=== PATIENT | female | born 1945 | race Caucasian/White ===

== ENCOUNTER 2019-10-02 17:25 | Emergency (ER) | payer MEDICARE ==
[2019-10-02 17:58] VITALS: RESP 18; TEMP 97
[2019-10-02 18:29] LABS: Basophils % (A) 1 %; Eosinophils # (A) 0.1 k/uL (0-0.7); Eosinophils % (A) 2 %; HCT 42.1 % (34.0-46.0); HGB 14.2 gm/dL (11.4-16.0); Lymphocytes # (A) 1.6 k/uL (1.0-4.8); Lymphocytes % (A) 30 %; MCHC 33.8 g/dL (31.0-37.0); MCV 100.5 fL (80.0-100.0); Mean Platelet Volume 7.7; Monocytes # (A) 0.3 k/uL (0-1.0); Monocytes % (A) 5 %; Neutrophils # (A) 3.2 k/uL (1.3-7.7); Neutrophils % (A) 59 %; Platelet Count 231 k/uL (150-450); RBC 4.19 m/uL (3.80-5.40); RDW 12.1 % (11.5-15.5); WBC 5.4 k/uL (3.8-10.6)
[2019-10-02 18:38] LABS: ALT 21 U/L (4-34); AST 32 U/L (14-36); African American GFR (CKD) >90 (>60 ml/min/1.73 sqM); Albumin 4.2 g/dL (3.5-5.0); Alkaline Phosphatase 66 U/L (38-126); Anion Gap 14 mmol/L; Blood Urea Nitrogen 10 mg/dL (7-17); Calcium 9.1 mg/dL (8.4-10.2); Carbon Dioxide 23 mmol/L (22-30); Chloride 104 mmol/L (98-107); Glucose 93 mg/dL (74-99); Non-African American GFR(CKD) >90 (>60 ml/min/1.73 sqM); Potassium 2.8 mmol/L (3.5-5.1); Sodium 141 mmol/L (137-145); Total Bilirubin 0.3 mg/dL (0.2-1.3); Total Protein 7.2 g/dL (6.3-8.2)
[2019-10-02 18:40] LABS: Alcohol 202 mg/dL
--- NOTE | 2019-10-02 19:03 | CT ---
EXAMINATION TYPE: CT brain mta delvalle con DATE OF EXAM: 10/02/2019 COMPARISON: None HISTORY: Fall with posterior head injury CT DLP: 1373.9 mGycm Automated exposure control for dose reduction was used. Multiple axial sections were obtained of the brain without contrast. Multiple axial sections were obt ained from the skull base to T1 vertebra without contrast. Ventricles have normal size. There is mild cerebral atrophy. There is no mass effect nor midline shif t. There is no sign of intracranial hemorrhage. The calvarium is intact. Cervical vertebra have normal alignment. There is spurring and disc space narrowing at C5-6 and C6-7. Posterior elements are intact. There is minor hypertrophic facet arthropathy. The skull base is inta ct. I see no focal bone destruction. IMPRESSION: Mild cerebral atrophy. No acute intracranial abnormality. Mild spondylotic changes in the lower cervical spine. No fracture.
[2019-10-02] MEDS ORDERED: ONDANSETRON 4 MG/2 ML VIAL IVP STA (19:24)
[2019-10-02] MEDS ORDERED: LIDOCAINE 1% INJ 10MG/ML (20 ML MDV) SQ ONE (19:46)
[2019-10-02] MEDS ORDERED: POTASSIUM CHLORIDE ER 20 MEQ TAB.ER PO STA (20:05)
--- NOTE | 2019-10-02 20:12 | ED ---
Head Injury HPI - General Chief complaint: Head Injury Stated complaint: head injury Time Seen by Provider: 10/02/19 17:47 Source: patient, EMS Mode of arrival: EMS Limitations: no limitations - History of Present Illness Initial comments: 74-year-old female that presents emergency room via ambulance today from her apartment for evaluation of fall at home. The patient reports that she had 2 whiskey and soda pop drinks. Patient reports that she was in her bathroom and she fell back. She is unsure as to why she fell. She denies any mechanical reasoning for the fall. She states that she was very tired. She denies any chest pain cough or respiratory breathing. No weakness. Denies any back pain hip pain or worsening pain. No upper stomach pain. She does relate that her head is bleeding. She denies any headache. No vision changes or speech changes. No history of anticoagulants. Denies any neck pain. Nothing seems to make her symptoms better or worse. No other complaints. - Related Data Previous Rx's Medication Instructions Recorded Potassium Chloride ER [K-Dur 20] 20 meq PO DAILY #7 tab 10/02/19 Allergies/Adverse reactions: Allergies Allergy/AdvReac Type Severity Reaction Status Date / Time adhesive Allergy Rash/Hives Verified 10/02/19 17:58 Review of Systems ROS Statement: Those systems with pertinent positive or pertinent negative responses have been documented in the HPI. ROS Other: All systems not noted in ROS Statement are negative. Past Medical History Past Medical History: Coronary Artery Disease (CAD), Hyperlipidemia, Hypertension Additional Past Medical History / Comment(s): glaucoma History of Any Multi-Drug Resistant Organisms: None Reported Past Surgical History: No Surgical Hx Reported Past Psychological History: No Psychological Hx Reported Smoking Status: Never smoker Past Alcohol Use History: Occasional Past Drug Use History: None Reported General Exam Limitations: no limitations General appearance: alert, in no apparent distress, appears intoxicated Head exam: Present: other (Patient's head is wrapped in bandages, upon removing the bandage as there is a curvilinear laceration full-thickness to the occipital region. This measures proximally 2.5 inches in length. There is moderate amount of bleeding which is easily controlled. There is a moderate amount of hematoma surrounding laceration that measures approximately 5 cm in diameter) Eye exam: Present: normal appearance ENT exam: Present: normal exam, normal oropharynx, mucous membranes moist, TM's normal bilaterally Neck exam: Present: normal inspection, full ROM. Absent: tenderness Respiratory exam: Present: normal lung sounds bilaterally. Absent: respiratory distress, wheezes, rales, rhonchi Cardiovascular Exam: Present: regular rate, normal rhythm, normal heart sounds GI/Abdominal exam: Present: soft, distended, normal bowel sounds Extremities exam: Present: normal inspection, full ROM, normal capillary refill Back exam: Present: normal inspection, full ROM Neurological exam: Present: alert, oriented X3, CN II-XII intact, normal gait Psychiatric exam: Present: normal affect, normal mood Skin exam: Present: warm, dry, intact, normal color Course Vital Signs 10/02/19 10/02/19 10/02/19 17:49 21:27 23:23 Temperature 97 F L Pulse Rate 72 60 78 Respiratory 18 18 18 Rate Blood Pressure 134/94 119/87 105/73 O2 Sat by Pulse 96 98 95 Oximetry Procedures - Laceration Laceration #1 Consent Obtained: verbal consent Indication: laceration (Laceration was surrounded by hematoma, hematoma reduced prior to suturing.) Site: scalp Size (cm): 8 Description: flap Depth: simple, single layer Anesthetic Used: lidocaine 1% Anesthesia Technique: local infiltration Pre-repair: wound explored, irrigated extensively, deep structures intact Type of Sutures: other (11 shashank) Patient Tolerated Procedure: well Medical Decision Making - Medical Decision Making 74-year-old female presents emergency room today after a fall. She sustained head injury. She has an obvious trauma with laceration and hematoma to occipital region of the scalp. Patient underwent CT imaging secondary to patient age as well as the laceration. Patient also had CT imaging of the cervical spine secondary to age and mechanism of fall. CT imaging of the brain and cervical spine is negative for any acute pathology. Patient does have cerebral atrophy. Patient is intoxicated, alcohol level is 202. Patient has no other injuries. She has full range of motion of her extremities. She has no tenderness or back or hips. Patient had EKG completed which revealed sinus bradycardia without any ST elevation or depression noted. Patient's potassium was found to be low at 2.8, this was replaced with 40 mEq by mouth. Patient was also given 20 milliequivalents of potassium IV. Her magnesium was normal. I did advise the patient that she is to follow-up with family doctor. I do believe that patient had a fall secondary to her alcohol intoxication. Patient verbalized understanding and she is to take 20 mEq of potassium daily over the next 1 week. She has been taking only 10 mEq at home, however is questionable as to whether she is taking this or not. I advised her the importance of taking the potassium and replacing it. I advised return precautions. Patient's sister is at bedside and she is agreeable to stay with the patient overnight. We did discuss head injuries. I advised her to retrain from any strenuous activity over the next couple weeks. I advised that the shashank need to be removed in 10 days. I discussed return precautions. They verbalized understanding and agreement. I did discuss the case with Dr. Vanessa. He did see patient - Lab Data Result diagrams: 10/02/19 18:16 10/02/19 18:16 Lab Results 10/02/19 10/02/19 10/02/19 Range/Units 18:16 18:16 18:16 WBC 5.4 (3.8-10.6) k/uL RBC 4.19 (3.80-5.40) m/uL Hgb 14.2 (11.4-16.0) gm/dL Hct 42.1 (34.0-46.0) % MCV 100.5 H (80.0-100.0) fL MCH 34.0 (25.0-35.0) pg MCHC 33.8 (31.0-37.0) g/dL RDW 12.1 (11.5-15.5) % Plt Count 231 (150-450) k/uL Neutrophils % 59 % Lymphocytes % 30 % Monocytes % 5 % Eosinophils % 2 % Basophils % 1 % Neutrophils # 3.2 (1.3-7.7) k/uL Lymphocytes # 1.6 (1.0-4.8) k/uL Monocytes # 0.3 (0-1.0) k/uL Eosinophils # 0.1 (0-0.7) k/uL Basophils # 0.0 (0-0.2) k/uL Sodium 141 (137-145) mmol/L Potassium 2.8 L (3.5-5.1) mmol/L Chloride 104 (98-107) mmol/L Carbon Dioxide 23 (22-30) mmol/L Anion Gap 14 mmol/L BUN 10 (7-17) mg/dL Creatinine 0.46 L (0.52-1.04) mg/dL Est GFR (CKD-EPI)AfAm >90 (>60 ml/min/1.73 sqM) Est GFR (CKD-EPI)NonAf >90 (>60 ml/min/1.73 sqM) Glucose 93 (74-99) mg/dL Calcium 9.1 (8.4-10.2) mg/dL Magnesium (1.6-2.3) mg/dL Total Bilirubin 0.3 (0.2-1.3) mg/dL AST 32 (14-36) U/L ALT 21 (4-34) U/L Alkaline Phosphatase 66 (38-126) U/L Troponin I <0.012 (0.000-0.034) ng/mL Total Protein 7.2 (6.3-8.2) g/dL Albumin 4.2 (3.5-5.0) g/dL Urine Color Urine Appearance (Clear) Urine pH (5.0-8.0) Ur Specific [place] (1.001-1.035) Urine Protein (Negative) Urine Glucose (UA) (Negative) Urine Ketones (Negative) Urine Blood (Negative) Urine Nitrite (Negative) Urine Bilirubin (Negative) Urine Urobilinogen (<2.0) mg/dL Ur Leukocyte Esterase (Negative) Serum Alcohol 202 H* mg/dL 10/02/19 10/02/19 Range/Units 18:16 21:20 WBC (3.8-10.6) k/uL RBC (3.80-5.40) m/uL Hgb (11.4-16.0) gm/dL Hct (34.0-46.0) % MCV (80.0-100.0) fL MCH (25.0-35.0) pg MCHC (31.0-37.0) g/dL RDW (11.5-15.5) % Plt Count (150-450) k/uL Neutrophils % % Lymphocytes % % Monocytes % % Eosinophils % % Basophils % % Neutrophils # (1.3-7.7) k/uL Lymphocytes # (1.0-4.8) k/uL Monocytes # (0-1.0) k/uL Eosinophils # (0-0.7) k/uL Basophils # (0-0.2) k/uL Sodium (137-145) mmol/L Potassium (3.5-5.1) mmol/L Chloride (98-107) mmol/L Carbon Dioxide (22-30) mmol/L Anion Gap mmol/L BUN (7-17) mg/dL Creatinine (0.52-1.04) mg/dL Est GFR (CKD-EPI)AfAm (>60 ml/min/1.73 sqM) Est GFR (CKD-EPI)NonAf (>60 ml/min/1.73 sqM) Glucose (74-99) mg/dL Calcium (8.4-10.2) mg/dL Magnesium 2.0 (1.6-2.3) mg/dL Total Bilirubin (0.2-1.3) mg/dL AST (14-36) U/L ALT (4-34) U/L Alkaline Phosphatase (38-126) U/L Troponin I (0.000-0.034) ng/mL Total Protein (6.3-8.2) g/dL Albumin (3.5-5.0) g/dL Urine Color Light Yellow Urine Appearance Clear (Clear) Urine pH 5.0 (5.0-8.0) Ur Specific [place] 1.009 (1.001-1.035) Urine Protein Negative (Negative) Urine Glucose (UA) Negative (Negative) Urine Ketones 1+ H (Negative) Urine Blood Negative (Negative) Urine Nitrite Negative (Negative) Urine Bilirubin Negative (Negative) Urine Urobilinogen <2.0 (<2.0) mg/dL Ur Leukocyte Esterase Negative (Negative) Serum Alcohol mg/dL - EKG Data EKG Comments: EKG was completed at 1827. Reveals sinus bradycardia with a rate of 54. [place] 162 QRS 98 QT/QTc 440/[address] elevation or depression noted. - Radiology Data Radiology results: report reviewed Disposition Clinical Impression: Alcohol intoxication, Fall, Head injury, Occipital scalp laceration, Hypokalemia Disposition: HOME SELF-CARE Instructions (If sedation given, give patient instructions): Hypokalemia (ED), Fall Prevention for Older Adults (ED), Head Injury (ED), Staple Care (ED) Additional Instructions: Ice to your head. Refrain from strenuous activities. Tylenol every 4-6 hours as needed for pain. Have the shashank removed in 10 days. Please increase your potassium tablets to 20 mg 1 time daily. Follow-up with her family doctor in regards to your low potassium. Return to the emergency room for any worsening or changing symptoms, including but not limited to increasing headache, vision changes, speech changes, weakness, vomiting, chest pain, or other concerns. Prescriptions: Potassium Chloride ER [K-Dur 20] 20 meq PO DAILY #7 tab Is patient prescribed a controlled substance at d/c from ED?: No When asked, does pt state using other controlled substances?: No Referrals: None,Stated [Primary Care Provider] - 1-2 days
[2019-10-02] MEDS ORDERED: POTASSIUM CHLORIDE 20 MEQ in WATER FOR INJECTION 1 100ML.BAG IVPB STA (20:58)
[2019-10-02 21:37] LABS: Appearance,Urine Clear (Clear); Bilirubin,Urine Negative (Negative); Blood,Urine Negative (Negative); Color,Urine Light Yellow; Glucose,Urine (UA) Negative (Negative); Ketones,Urine 1+ (Negative); Leukocyte Esterase,Urine Negative (Negative); Nitrite,Urine Negative (Negative); Protein,Urine Negative (Negative); Specific Gravity,Urine 1.009 (1.001-1.035); Urobilinogen,Urine <2.0 mg/dL (<2.0)
[2019-10-02 23:30] VITALS: BP 105/73; PULSE 78
== END 2019-10-02 23:30 | disposition home or self-care (01) ==
LOC: EC 17:25
DX: S01.01XA Laceration without foreign body of scalp, initial encounter (principal); E87.6 Hypokalemia; F10.129 Alcohol abuse with intoxication, unspecified; G31.9 Degenerative disease of nervous system, unspecified; R00.1 Bradycardia, unspecified; Z91.048 Other nonmedicinal substance allergy status; Y90.7 Blood alcohol level of 200-239 mg/100 ml; W19.XXXA Unspecified fall, initial encounter; Y92.002 Bathroom of unspecified non-institutional (private) residence as the place of occurrence of the external cause
CPT/HCPCS: 36415; 93005; 80053; 83735; 84484; 85025; 81003; 72125; 70450; 99284; 12004; 96365; 96366; 96375; G0480; J3480; J2405; J2001; 80320

== ENCOUNTER → 2020-02-01 | Outpatient (CLI) | payer MEDICARE | END | disposition home or self-care (01) | LOC: LABWHC1 12:38 | PROVIDERS: ATTEND Surgery | DX: Z11.59 Encounter for screening for other viral diseases (principal) ==

== ENCOUNTER → 2020-02-05 | Day surgery (SDC) | payer MEDICARE ==
[2020-02-01 10:25] VITALS: BMI 26.9
[~2020-02-05] MED LIST: LACTATED RINGERS 1,000 ML IV SCH; LIDOCAINE 1% (10MG/ML) FOR IV START INTRADERMA PRN; LIDOCAINE 1% INJ 10MG/ML (20 ML MDV) ONE; PROPOFOL 10 MG/ML 20 ML VIAL IV ONE
[2020-02-05 08:46] VITALS: RESP 16; TEMP 97.1
--- NOTE | 2020-02-05 09:13 | P.GSHP ---
History of Present Illness H&P Date: 02/05/20 Chief Complaint: Anemia, GERD, screening, history of polyps Patient here today for upper and lower endoscopy. Last colonoscopy 5 years ago. History of colon polyps. No family history of colon cancer. Recently found to be anemic. Has had some dark stools while on oral iron. Denies rectal bleeding. Chronic reflux. No dysphagia. No pain. Past Medical History Past Medical History: Coronary Artery Disease (CAD), Cancer, Eye Disorder, Hypertension, Pneumonia Additional Past Medical History / Comment(s): glaucoma, hiatal hernia, skin cancer, low red blood cells and low white blood cells History of Any Multi-Drug Resistant Organisms: None Reported Past Surgical History: Breast Surgery Additional Past Surgical History / Comment(s): breast biopsy, vein removed from left leg, Past Anesthesia/Blood Transfusion Reactions: No Reported Reaction Smoking Status: Never smoker - Past Family History Mother Family Medical History: No Reported History Medications and Allergies Home Medications Medication Instructions Recorded Confirmed Type Atorvastatin [Lipitor] 10 mg PO DAILY 02/01/20 02/05/20 History Biotin 10,000 mcg PO DAILY 02/01/20 02/05/20 History Brimonidine Tartrate [Alphagan P 1 drops BOTH EYES BID 02/01/20 02/05/20 History 0.1% Ophth Soln] Cholecalciferol (Vitamin D3) 2,000 unit PO DAILY 02/01/20 02/05/20 History [Vitamin D3] Cyanocobalamin (Vitamin B-12) 1,000 mcg PO DAILY 02/01/20 02/05/20 History [Vitamin B-12] Dorzolamide-Timol 2.23%/0.68% 1 drop BOTH EYES BID 02/01/20 02/05/20 History [Cosopt] Hydrochlorothiazide [Hydrodiuril] 25 mg PO DAILY 02/01/20 02/05/20 History Multivitamins, Thera [Multivitamin 1 tab PO DAILY 02/01/20 02/05/20 History (formulary)] Netarsudil Mesylat/Latanoprost 1 drop BOTH EYES HS 02/01/20 02/05/20 History [Rocklatan 0.02%-0.005% Eye Drp] Omeprazole [PriLOSEC] 40 mg PO DAILY 02/01/20 02/05/20 History Potassium Chloride [Klor-Con 10] 10 meq PO BID 02/01/20 02/05/20 History Raloxifene [Evista] 60 mg PO DAILY 02/01/20 02/05/20 History amLODIPine [Norvasc] 10 mg PO DAILY 02/01/20 02/05/20 History Allergies Allergy/AdvReac Type Severity Reaction Status Date / Time adhesive Allergy Rash/Hives Verified 02/05/20 08:30 bandaid Allergy Rash/Hives Uncoded 02/05/20 08:30 Surgical - Exam Vital Signs Temp Pulse Resp BP Pulse Ox 97.1 F L 67 16 115/72 96 02/05/20 08:32 02/05/20 08:32 02/05/20 08:32 02/05/20 08:32 02/05/20 08:32 Physical exam: General: Well-developed, well-nourished HEENT: Normocephalic, sclerae nonicteric Abdomen: Nontender, nondistended Extremities: No edema Neuro: Alert and oriented Assessment and Plan (1) GERD (gastroesophageal reflux disease) Narrative/Plan: Will proceed with upper and lower endoscopy. Current Visit: Yes Status: Acute Code(s): K21.9 - GASTRO-ESOPHAGEAL REFLUX DISEASE WITHOUT ESOPHAGITIS SNOMED Code(s): 203004665
--- NOTE | 2020-02-05 09:38 | P.PCN ---
Date of Procedure: 02/05/20 Procedure(s) Performed: PREOPERATIVE DIAGNOSIS: Anemia, GERD, history of polyps POSTOPERATIVE DIAGNOSIS: Gastritis, hiatal hernia, diverticulosis, rectal polyp PROCEDURE: 1. EGD with biopsy 2. Colonoscopy with snare polypectomy ANESTHESIA: MAC SURGEON: Sebastian Lugo M.D. SPECIMENS: Mackay, cardia, rectal polyp ENDOSCOPIC PROCEDURE: The patient was on the endoscopy table in the left decubitus position. The Olympus gastroscope was inserted into the oropharynx and passed under direct visualization to the region of the third portion of the duodenum. From that point the scope was slowly withdrawn inspecting all surfaces carefully. There were no neoplastic inflammatory or polypoid lesions throughout the duodenum. The pylorus was widely patent. The stomach was carefully inspected. There was mild gastritis present in the antrum and body. A biopsy of the antrum took place to rule out H. pylori. Retroflexion revealed a moderate size hiatal hernia. The GE junction was present 2 cm above the diaphragmatic hiatus. There was mild gastritis present at the cardia within the supradiaphragmatic hernia. This may have been a source of recent anemia. Biopsies were taken. No ulcers were seen there. The esophagus was then carefully examined. There were no neoplastic inflammatory or polypoid lesions throughout the visualized esophagus. The patient was kept on the endoscopy table in the left decubitus position. The Olympus colonoscope was inserted into the anus and passed under direct visualization to the base of the cecum. The appendiceal orifice was visualized. From that point the scope was slowly withdrawn inspecting all surfaces carefully. There were no neoplastic inflammatory or polypoid lesions throughout the cecum, ascending, transverse, descending, and sigmoid colon. In the rectum a small polyp was seen and removed using the snare with cautery technique. There was moderate left-sided diverticulosis. Digital rectal examination was normal. The patient was taken to the recovery room in stable condition per anesthesia guidelines. RECOMMENDATIONS: Await biopsy results. Continue antiacid therapy. If anemia persists evaluation of small bowel via small bowel series or capsule endoscopy would be an option.
[2020-02-05 09:55] VITALS: BP 132/83; PULSE 75
== END ==
LOC: ORWHC2ENDO 08:09
PROVIDERS: ATTEND Surgery
DX: K62.1 Rectal polyp (principal); K29.50 Unspecified chronic gastritis without bleeding; K44.9 Diaphragmatic hernia without obstruction or gangrene; D64.9 Anemia, unspecified; K21.9 Gastro-esophageal reflux disease without esophagitis; I25.10 Atherosclerotic heart disease of native coronary artery without angina pectoris; I10 Essential (primary) hypertension; H40.9 Unspecified glaucoma; D72.819 Decreased white blood cell count, unspecified; Z86.010 Personal history of colon polyps; Z87.01 Personal history of pneumonia (recurrent); Z85.828 Personal history of other malignant neoplasm of skin; Z79.899 Other long term (current) drug therapy; Z98.890 Other specified postprocedural states; Z91.09 Other allergy status, other than to drugs and biological substances
CPT/HCPCS: 88305; 45385; 43239; J2001; J2704

== ENCOUNTER → 2020-11-10 | Outpatient (CLI) | payer MEDICARE ==
[2020-11-10 18:33] LABS: Basophils # (A) 0.04 X 10*3/uL (0.00-0.10); Basophils % (A) 0.8 %; Eosinophils # (A) 0.08 X 10*3/uL (0.04-0.35); Eosinophils % (A) 1.7 %; HGB 13.4 g/dL (12.0-15.0); Lymphocytes # (A) 1.05 X 10*3/uL (0.90-5.00); Lymphocytes % (A) 21.8 %; MCH 33.8 pg (27.0-32.0); MCHC 33.5 g/dL (32.0-37.0); MCV 100.8 fL (80.0-97.0); Mean Platelet Volume 10.5 fL (9.5-12.2); Monocytes # (A) 0.35 X 10*3/uL (0.20-1.00); Monocytes % (A) 7.3 %; Neutrophils # (A) 3.29 X 10*3/uL (1.80-7.70); Neutrophils % (A) 68.2 %; Platelet Count 216 X 10*3/uL (140-440); RBC 3.97 X 10*6/uL (4.10-5.20); RDW 12.9 % (11.5-14.5); WBC 4.82 X 10*3/uL (4.50-10.00)
[2020-11-10 20:56] LABS: African American GFR (CKD) 102.6 (60.0-200.0); Albumin 4.5 g/dL (3.80-4.90); Albumin/Globulin Ratio 1.8 (1.60-3.17); Anion Gap 8.7 mmol/L (4.00-12.00); BUN/Creat Ratio 23.33 Ratio (12.00-20.00); Calcium 9.4 mg/dL (8.7-10.3); Carbon Dioxide 29.3 mmol/L (21.6-31.8); Chol/HDL Ratio 2.41; Globulin 2.5 g/dL (1.6-3.3); LDL Cholesterol,Calculated 88.2 mg/dL (0.0-131.0); Magnesium 2.1 mg/dL (1.5-2.4); Non-African American GFR(CKD) 88.5 (60.0-200.0); Potassium 3.8 mmol/L (3.5-5.5); Total Bilirubin 0.6 mg/dL (0.2-1.2); VLDL Calculation 14.8 mg/dL (5.00-40.00)
== END | disposition home or self-care (01) ==
LOC: LABWHC1 10:58
PROVIDERS: ATTEND Family Medicine
DX: D50.9 Iron deficiency anemia, unspecified (principal); E78.5 Hyperlipidemia, unspecified; I10 Essential (primary) hypertension; I70.0 Atherosclerosis of aorta; I83.893 Varicose veins of bilateral lower extremities with other complications; K21.9 Gastro-esophageal reflux disease without esophagitis; Z79.899 Other long term (current) drug therapy
CPT/HCPCS: 36415; 80053; 80061; 82607; 83735; 85025

== ENCOUNTER → 2021-02-20 | Outpatient (CLI) | payer MEDICARE | END | disposition home or self-care (01) | DX: Z12.31 Encounter for screening mammogram for malignant neoplasm of breast (principal); Z78.0 Asymptomatic menopausal state; Z85.9 Personal history of malignant neoplasm, unspecified | CPT/HCPCS: 77063; 77067 ==

== ENCOUNTER 2022-01-04 15:55 | Emergency (ER) | payer MEDICARE ==
[2022-01-04 16:18] VITALS: BP 137/84; PULSE 111; RESP 18; TEMP 98.2
[2022-01-04] MEDS ORDERED: BACITRACIN OINT 1 EACH PACKET TOPICAL ONE (17:30)
--- NOTE | 2022-01-04 18:14 | XR ---
EXAMINATION TYPE: XR finger LT DATE OF EXAM: 01/04/2022 5:45 PM INDICATION: Patient age:Female; 76 years old; Reason for study: laceration; COMPARISON: None TECHNIQUE: 3 views of the left ring finger were obtained. FINDINGS: Soft tissue defect involving the volar aspect of the fourth digit of the left hand. No radi opaque foreign body. No evidence fracture. Scattered degenerative changes are seen throughout the int erphalangeal joints with osteophytes and joint space narrowing. No acute osseous pathology is identif ied. No evidence of soft tissue swelling. IMPRESSION: 1. Laceration of the left hand fourth digit without evidence for radiopaque foreign body or fracture . 2. 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
[2022-01-04] MEDS ORDERED: LIDOCAINE 1% INJ 10MG/ML (5 ML VIAL-PF) SQ ONE (18:34)
[2022-01-04] MEDS ORDERED: DIPH,PERTUS(ACELL)TETVAC-LF 0.5 ML VIAL IM ONE (18:34)
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
== END 2022-01-04 20:03 | disposition home or self-care (01) ==
LOC: EC 15:55
DX: S61.215A Laceration without foreign body of left ring finger without damage to nail, initial encounter (principal); S60.413A Abrasion of left middle finger, initial encounter; I10 Essential (primary) hypertension; I25.10 Atherosclerotic heart disease of native coronary artery without angina pectoris; E78.5 Hyperlipidemia, unspecified; Z79.899 Other long term (current) drug therapy; W22.8XXA Striking against or struck by other objects, initial encounter
CPT/HCPCS: 73140; 90715; 12001; 90471; 99283; J2001

== ENCOUNTER → 2022-02-22 | Outpatient (CLI) | payer MEDICARE ==
--- NOTE | 2022-02-23 13:55 | MM ---
Reason for Exam: Screening (asymptomatic). Last screening mammogram was performed 12 month(s) ago. Patient History: Menarche at age 13. First Full-Term at age 24. Postmenopausal. Other cancer, age 55. Risk Values: Elvira 5 year model risk: 1.8%. NCI Lifetime model risk: 3.4%. Prior Study Comparison: 04/25/2008 Bilateral Screening Mammogram, [facility]. 11/15/2019 Screening Mammogram, [place]. 02/20/2021 Bilateral Screening Mammogram, [facility]. Tissue Density: The breast tissue is heterogeneously dense. This may lower the sensitivity of mammography. Findings: Analyzed By CAD. Benign coarse calcifications within the left breast. No suspicious groups of microcalcifications, spiculated or lobular masses, architectural distortion or other secondary signs of malignancy are mammographically apparent. Overall Assessment: Benign, BI-RAD 2 Management: Screening Mammogram of both breasts in 1 year. A negative mammogram report should not preclude additional follow up of suspicious palpable abnormalities. Patient should continue monthly self breast exam. A clinical breast exam by your physician is recommended on an annual basis and results should be correlated with mammographic findings. Electronically signed and approved by: Trever Cleveland D.O. Radiologis
== END | disposition home or self-care (01) ==
LOC: RADMAMWWP 15:35
PROVIDERS: ATTEND Family Medicine
DX: Z12.31 Encounter for screening mammogram for malignant neoplasm of breast (principal); Z78.0 Asymptomatic menopausal state
CPT/HCPCS: 77063; 77067

== ENCOUNTER → 2023-02-28 | Outpatient (CLI) | payer MEDICARE ==
--- NOTE | 2023-03-01 09:53 | MM ---
Reason for Exam: Screening (asymptomatic). Last screening mammogram was performed 12 month(s) ago. Patient History: Menarche at age 13. First Full-Term at age 24. Postmenopausal. 1989, Benign Excisional Biopsy on the right side. 1984, Benign Excisional Biopsy on the left side. 1985, Benign Excisional Biopsy on the left side. 1984, Benign Excisional Biopsy on the right side. Risk Values: Elvira 5 year model risk: 2.6%. NCI Lifetime model risk: 4.7%. Prior Study Comparison: 11/15/2019 Screening Mammogram, [place]. 02/20/2021 Bilateral Screening Mammogram, [facility]. 02/22/2022 Bilateral MG 3D screening mammo w/cad, [facility]. Tissue Density: The breast tissue is heterogeneously dense. This may lower the sensitivity of mammography. Findings: Analyzed By CAD. There are benign-appearing vascular calcifications that are redemonstrated throughout the bilateral breasts. There are occasional benign-appearing round calcification throughout the bilateral breasts redemonstrated. There is no suspicious new group of microcalcifications or new suspicious mass in either breast. Overall Assessment: Benign, BI-RAD 2 Management: Screening Mammogram of both breasts in 1 year. . Patient should continue monthly self-breast exams. A clinical breast exam by your physician is recommended on an annual basis. This exam should not preclude additional follow-up of suspicious palpable abnormalities. Note on Elvira scores and lifetime risk: 1. A Elvira score greater than 3% is considered moderate risk. If this is the case, consider specialist referral to assess eligibility for a risk reducing agent. 2. If overall lifetime risk for the development of breast cancer is 20% or higher, the patient may qualify for future screening with alternating mammogram and breast MRI. Electronically signed and approved by: Mina Fajardo M.D.
== END | disposition home or self-care (01) ==
LOC: RADMAMWWP 16:29
PROVIDERS: ATTEND Family Medicine
DX: Z12.31 Encounter for screening mammogram for malignant neoplasm of breast (principal); Z78.0 Asymptomatic menopausal state
CPT/HCPCS: 77063; 77067

== ENCOUNTER → 2023-03-16 | Outpatient (CLI) | payer MEDICARE ==
--- NOTE | 2023-03-17 07:41 | BD ---
EXAMINATION TYPE: Axial Bone Density DATE OF EXAM: 03/16/2023 CLINICAL HISTORY: 77 years old Female. ICD-10 CODE: M85.8 OTH DISRD OF BONE DENSITY AND STRUCTURE, U NSPECIFIED S Height: 4 ft 11 in Weight: 141 FRAX RISK QUESTIONS: Alcohol (3 or more units per day): no Family History (Parent hip fracture): no Glucocorticoids (More than 3mos): no (Ex: prednisone, prednisolone, methylprednisolone, dexamethasone, and hydrocortisone). History of Fracture in Adulthood: yes Secondary Osteoporosis: 1. Type 1 Diabetes: no 2. Hyperthyroidism: no 3. Menopause before 45: no 4. Malnutrition: no 5. Chronic liver disease: no Rheumatoid Arthritis: no Current Tobacco Use: no RISK FACTORS HISTORY OF: Surgery to Spine/Hip(right/left)/Wrist (right/left): no Family History of Osteoporosis: yes Active: yes Diet low in dairy products/other sources of calcium: no Postmenopausal woman: yes Take estrogen and/or progesterone medications: no Lost more than 2 inches in height since high school: yes Frequent falls: no Poor Health: good Hyperparathyroidism: no Adrenal Insufficiency: no MEDICATIONS: Osteoporosis Medications: yes Which medication: evista How Long: approx 20 years Additional Medications: evista, hydrochlorothiazide, Lunesta, Atorvastatin, timolol, lumigan, amlodi pine, omeprazole Additional History: EXAM MEASUREMENTS: Bone mineral densitometry was performed using the Blomming System. Bone mineral density as measured about the Lumbar spine is: ----- L1-L4(G/cm2): 0.954 T Score Values are as follows: ----- L1: -1.6 ----- L2: -3.0 ----- L3: -1.8 ----- L4: -1.4 ----- L1-L4: -1.9 Z Score Values are as follows: ----- L1: 0.2 ----- L2: -1.2 ----- L3: 0.1 ----- L4: 0.4 ----- L1-L4: 0.0 prev done elsewhere Bone mineral density about the R hip (g/cm2): 0.932 Bone mineral density about the L hip (g/cm2): 0.825 T Score values are as follows: -----R Neck: -0.8 -----L Neck: -1.5 -----R Total: -0.8 -----L Total: -0.8 Z Score values are as follows: -----R Neck: 1.3 -----L Neck: 0.6 -----R Total: 1.2 -----L Total: 1.2 prev done elsewhere FRAX%s: The graph provided illustrates a 18.9 % chance for a major osteoporotic fx and a 4.0 % chance for the hips probability for fx in 10 years time. IMPRESSION: Osteopenia (T Score between -2.5 and -1). There is slightly increased risk of fracture and the patient may be considered for treatment. Re-Screen 2-5 years. NOTE: T-SCORE=SD OF THE YOUNG ADULT MEAN.
== END | disposition home or self-care (01) ==
LOC: RADBDWWP 09:14
PROVIDERS: ATTEND Family Medicine
DX: M81.0 Age-related osteoporosis without current pathological fracture (principal); M85.89 Other specified disorders of bone density and structure, multiple sites
CPT/HCPCS: 77080

== ENCOUNTER 2023-08-15 17:43 | Emergency (ER) | payer MEDICARE ==
[2023-08-15 17:51] VITALS: BP 128/85; PULSE 69; RESP 16; TEMP 98
--- NOTE | 2023-08-15 18:17 | ED ---
Head Injury HPI - General Chief complaint: Head Injury Stated complaint: Fall/head injury Time Seen by Provider: 08/15/23 17:53 Source: patient, family, RN notes reviewed, old records reviewed Mode of arrival: wheelchair Limitations: no limitations - History of Present Illness Initial comments: This is a 77-year-old female to the emergency department for evaluation of fall fall. Patient did sustain laceration above the right eye. Patient is a mildly poor story history obtained from family member at bedside. Patient is on blood thinners denies loss of consciousness and states fall was mechanical in nature MD Complaint: head injury, head pain, fall, other (Facial laceration) -: minutes(s) Mechanism of Injury: mechanical fall Location: frontal, face Loss of Consciousness: no Previous Trauma to this Area: No Place: home Radiation: none Severity: mild Severity scale (1-10): 2 Consistency: constant Other Injuries: laceration Context: other (0) Associated Symptoms: other (0) - Related Data Home Medications Medication Instructions Recorded Confirmed Atorvastatin [Lipitor] 10 mg PO DAILY 02/01/20 02/05/20 Biotin 10,000 mcg PO DAILY 02/01/20 02/05/20 Brimonidine Tartrate [Alphagan P 1 drops BOTH EYES BID 02/01/20 02/05/20 0.1% Ophth Soln] Cholecalciferol (Vitamin D3) 2,000 unit PO DAILY 02/01/20 02/05/20 [Vitamin D3] Cyanocobalamin (Vitamin B-12) 1,000 mcg PO DAILY 02/01/20 02/05/20 [Vitamin B-12] Dorzolamide-Timol 2.23%/0.68% 1 drop BOTH EYES BID 02/01/20 02/05/20 [Cosopt] Multivitamins, Thera [Multivitamin 1 tab PO DAILY 02/01/20 02/05/20 (formulary)] Netarsudil Mesylat/Latanoprost 1 drop BOTH EYES HS 02/01/20 02/05/20 [Rocklatan 0.02%-0.005% Eye Drp] Omeprazole [PriLOSEC] 40 mg PO DAILY 02/01/20 02/05/20 Potassium Chloride [Klor-Con 10] 10 meq PO BID 02/01/20 02/05/20 Raloxifene [Evista] 60 mg PO DAILY 02/01/20 02/05/20 amLODIPine [Norvasc] 10 mg PO DAILY 02/01/20 02/05/20 hydroCHLOROthiazide [Hydrodiuril] 25 mg PO DAILY 02/01/20 02/05/20 Allergies/Adverse reactions: Allergies Allergy/AdvReac Type Severity Reaction Status Date / Time adhesive Allergy Rash/Hives Verified 02/05/20 08:30 bandaid Allergy Rash/Hives Uncoded 02/05/20 08:30 Review of Systems ROS Statement: Those systems with pertinent positive or pertinent negative responses have been documented in the HPI. ROS Other: All systems not noted in ROS Statement are negative. Past Medical History Past Medical History: Coronary Artery Disease (CAD), Hyperlipidemia, Hypertension Additional Past Medical History / Comment(s): glaucoma History of Any Multi-Drug Resistant Organisms: None Reported Past Surgical History: No Surgical Hx Reported Past Psychological History: No Psychological Hx Reported Smoking Status: Never smoker Past Alcohol Use History: Occasional Past Drug Use History: None Reported General Exam Limitations: no limitations General appearance: alert, in no apparent distress, anxious Head exam: Present: normocephalic, normal inspection. Absent: atraumatic (2 cm facial laceration) Eye exam: Present: normal appearance, PERRL, EOMI. Absent: scleral icterus, conjunctival injection, periorbital swelling ENT exam: Present: normal exam, mucous membranes moist Neck exam: Present: normal inspection. Absent: tenderness, meningismus, lymphadenopathy Respiratory exam: Present: normal lung sounds bilaterally. Absent: respiratory distress, wheezes, rales, rhonchi, stridor Cardiovascular Exam: Present: regular rate, normal rhythm, normal heart sounds. Absent: systolic murmur, diastolic murmur, rubs, gallop, clicks GI/Abdominal exam: Present: soft, normal bowel sounds. Absent: distended, tenderness, guarding, rebound, rigid Extremities exam: Present: normal inspection, full ROM, normal capillary refill. Absent: tenderness, pedal edema, joint swelling, calf tenderness Back exam: Present: normal inspection Neurological exam: Present: alert, oriented X3, CN II-XII intact Psychiatric exam: Present: normal affect, normal mood Skin exam: Present: warm, dry, intact, normal color. Absent: rash Course Vital Signs 08/15/23 17:45 Temperature 98 F Pulse Rate 69 Respiratory 16 Rate Blood Pressure 128/85 O2 Sat by Pulse 95 Oximetry - Reevaluation(s) Reevaluation #1: Medical records reviewed Reevaluation #2: Patient symptoms are improved Reevaluation #3: Patient informed results questions answered Reevaluation #4: Was pt. sent in by a medical professional or institution (YADIEL Brewster, TEAM SUPERVISOR, urgent care, hospital, or half-way...) When possible be specific @ -no Did you speak to anyone other than the patient for history (EMS, parent, family, police, friend...)? What history was obtained from this source @ -no Did you review nursing and triage notes (agree or disagree)? Why? @ -agree Are old charts reviewed (outside hosp., previous admission, EMS record, old EKG, old radiological studies, urgent care reports/EKG's, half-way records)? Report findings @ -yes Differential Diagnosis (chest pain, altered mental status, abdominal pain women, abdominal pain men, vaginal bleeding, weakness, fever, dyspnea, syncope, headache, dizziness, GI bleed, back pain, seizure, CVA, palpatations, mental health, musculoskeletal)? @ -prior EKG interpreted by me (3pts min.). @ -no X-rays interpreted by me (1pt min.). @ -no CT interpreted by me (1pt min.). @ -yes negative for acute disease U/S interpreted by me (1pt. min.). @ -no What testing was considered but not performed or refused? (CT, X-rays, U/S, labs)? Why? @ -none What meds were considered but not given or refused? Why? @ -none Did you discuss the management of the patient with other professionals (professionals i.e. YADIEL Brewster, TEAM SUPERVISOR, lab, RT, psych nurse, social media developer, lean manufacturing coordinator, teacher, cavalry officer, case management director)? Give summary @ -no Was smoking cessation discussed for >3mins.? @ -no Was critical care preformed (if so, how long)? @ -no Were there social determinants of health that impacted care today? How? (Homelessness, low income, unemployed, alcoholism, drug addiction, transportation, low edu. Level, literacy, decrease access to med. care, assisted, rehab)? @ -none Was there de-escalation of care discussed even if they declined (Discuss DNR or withdrawal of care, Hospice)? DNR status @ -no What co-morbidities impacted this encounter? (DM, HTN, Smoking, COPD, CAD, Cancer, CVA, ARF, Chemo, Hep., AIDS, mental health diagnosis, sleep apnea, morbid obesity)? @ -none Was patient admitted / discharged? Hospital course, mention meds given and route, prescriptions, significant lab abnormalities, going to OR and other pertinent info. @ - 77 female to the emergency department for evaluation. Patient is a fall fall with a head injury and facial laceration which is repaired here in the ER patient can be discharged home Discharge Undiagnosed new problem with uncertain prognosis? @ -no Drug Therapy requiring intensive monitoring for toxicity (Heparin, Nitro, Insulin, Cardizem)? @ -no Were any procedures done? @ - D yes laceration repairiagnosis./symptom? @ -Fall with head injury, laceration Acute, or Chronic, or Acute on Chronic? @ -Acute Uncomplicated (without systemic symptoms) or Complicated (systemic symptoms)? @ -Complicated Side effects of treatment? @ -no Exacerbation, Progression, or Severe Exacerbation? @ -exacerbation Poses a threat to life or bodily function? How? (Chest pain, USA, SC, pneumonia, PE, COPD, DKA, ARF, appy, cholecystitis, CVA, Diverticulitis, Homicidal, Suicidal, threat to staff... and all critical care pts) @ -yes fall with extreme of age and laceration Procedures - Laceration Laceration #1 Consent Obtained: verbal consent Indication: laceration Site: face Size (cm): 2 Description: linear Depth: simple, single layer Size of Sutures: 6-0 Technique: simple, interrupted Patient Tolerated Procedure: well Medical Decision Making - Medical Decision Making 77 female to the emergency department for evaluation. Patient is a fall fall with a head injury and facial laceration laceration to right orbit 2 cm which is repaired here in the ER patient can be discharged home - Radiology Data Radiology results: report reviewed (CT brain C-spine is negative for acute disease), image reviewed Disposition Clinical Impression: Closed head injury, Facial laceration Disposition: HOME SELF-CARE Condition: Good Instructions (If sedation given, give patient instructions): Laceration (ED) Is patient prescribed a controlled substance at d/c from ED?: No Referrals: Yenifer Lugo MD [Primary Care Provider] - 1-2 days Time of Disposition: 19:05
--- NOTE | 2023-08-15 18:42 | CT ---
EXAMINATION TYPE: CT brain mat francis DATE OF EXAM: 08/15/2023 COMPARISON: October HISTORY: fall, head lac to forehead CT DLP: 1281.[address] of the brain was performed. The ventricles, basal cisterns and sulci overlying the cerebral convexities demonstrate mild enlargem ent. There is no evidence for intracranial hemorrhage or sulcal effacement. There is decreased attenuatio n about the periventricular white matter and deep white matter of both cerebral hemispheres, compatib le with chronic small vessel ischemia. No mass effects are seen. If symptoms persist consider MRI. Osseous calvarium is intact. IMPRESSION: 1. Age related atrophic and chronic small vessel ischemic change without acute intracranial process seen at this time. CT Cervical Spine: Unenhanced CT of the cervical spine was performed with bone and soft tissue window settings submitted . Coronal and sagittal reconstruction is obtained. There is normal alignment and prevertebral soft tissues. No evidence for acute cervical fracture . Scattered degenerative disc disease and spondylosis. Biapical scarring. IMPRESSION: 1. No evidence for acute fracture or subluxation of the cervical spine.
== END 2023-08-15 20:01 | disposition home or self-care (01) ==
LOC: EC 17:43
DX: S01.81XA Laceration without foreign body of other part of head, initial encounter (principal); I25.10 Atherosclerotic heart disease of native coronary artery without angina pectoris; I10 Essential (primary) hypertension; E78.5 Hyperlipidemia, unspecified; Z79.899 Other long term (current) drug therapy; Z91.09 Other allergy status, other than to drugs and biological substances; W18.30XA Fall on same level, unspecified, initial encounter
CPT/HCPCS: 12011; 70450; 72125; 99284

== ENCOUNTER → 2024-01-23 | Outpatient (CLI) | payer MEDICARE ==
--- NOTE | 2024-01-23 16:09 | XR ---
EXAMINATION TYPE: XR elbow limited RT, XR humerus RT, XR shoulder limited RT DATE OF EXAM: 01/23/2024 3:41 PM CLINICAL INDICATION:Female, 78 years old with history of M25.511 M25.521 W01.198A PAIN IN RIGHT SHOUL JACI PA; [facility] COMPARISON: None TECHNIQUE: XR elbow limited RT, XR humerus RT, XR shoulder limited RT; elbow was examined in AP, late ral, and oblique projections. Frontal and lateral views of the humerus. Frontal external rotation and scapular Y views of the right shoulder. FINDINGS: Small lucency through the greater tuberosity of the proximal humerus. Otherwise no evidence of fracture. Soft tissue swelling over the olecranon process. Visual distortions of the chest are gr ossly unremarkable. The radius and ulna appear intact. IMPRESSION: 1. Small lucency through the greater tuberosity of the humerus. Consider CT imaging to rule out frac ture. 2. Soft tissue swelling over the olecranon process. Correlate for soft tissue edema secondary to tra ketih versus bursitis.
== END | disposition home or self-care (01) ==
LOC: RADXRMAIN 15:14
PROVIDERS: ATTEND Nurse Practitioner Family
DX: M79.89 Other specified soft tissue disorders (principal); M25.511 Pain in right shoulder; M25.521 Pain in right elbow; W01.198A Fall on same level from slipping, tripping and stumbling with subsequent striking against other object, initial encounter

== ENCOUNTER → 2024-01-27 | Outpatient (CLI) | payer MEDICARE ==
--- NOTE | 2024-01-27 12:29 | CT ---
EXAMINATION TYPE: CT shoulder RT wo con CT DLP: 302.7 mGycm, Automated exposure control for dose reduction was used. DATE OF EXAM: 01/27/2024 11:25 AM COMPARISON: . Extremity radiograph 01/23/2024 CLINICAL INDICATION:Female, 78 years old with history of M25.511 RT SHOULDER PAIN; [facility], RT shoulder p ain after fall x1 week ago TECHNIQUE: Axial images were obtained of the CT shoulder RT wo con, Additional coronal and sagittal r eformatted images and soft tissue and bone window were obtained for review. 3-D reconstruction was cr eated on a separate workstation. Contrast used: mL of , (None if empty) Oral contrast used: (None if empty) FINDINGS: There is mild to moderate degeneration changes of the acromioclavicular and glenohumeral miah int with osteophyte formation. Mild progression of fracture lines to the greater tuberosity of the pr oximal right humerus. 1-2 mm displacement. Visualized other osseous structures appear intact. No evid ence for acute thoracic process. IMPRESSION: Multidirectional acute fracture of the greater tuberosity of the proximal right humerus. There our fr acture lines extending close to the intra-articular portion of the humerus. Additional fractures. No acute process within the thorax.
== END | disposition home or self-care (01) ==
LOC: RADCTMAIN 10:07
PROVIDERS: ATTEND Family Medicine
DX: S42.251A Displaced fracture of greater tuberosity of right humerus, initial encounter for closed fracture (principal); W19.XXXA Unspecified fall, initial encounter

== ENCOUNTER → 2024-03-14 | Outpatient (CLI) | payer MEDICARE ==
--- NOTE | 2024-03-22 21:23 | MM ---
Reason for Exam: Screening (asymptomatic). Last mammogram was performed 1 year(s) and 1 month(s) ago. Patient History: Menarche at age 13. First Full-Term at age 24. Postmenopausal. 1989, Benign Excisional Biopsy on the right side. 1984, Benign Excisional Biopsy on the left side. 1985, Benign Excisional Biopsy on the left side. 1984, Benign Excisional Biopsy on the right side. Risk Values: Elvira 5 year model risk: 2.6%. NCI Lifetime model risk: 4.3%. Prior Study Comparison: 02/20/2021 Bilateral Screening Mammogram, [facility]. 02/22/2022 Bilateral MG 3D screening mammo w/cad, [facility]. 02/28/2023 Bilateral MG 3D screening mammo w/cad, [facility]. Tissue Density: The breasts are heterogeneously dense, which may obscure small masses. Findings: Analyzed By CAD. Areas of asymmetric density are unchanged. Benign oil cyst and vascular calcifications on the left. There is no suspicious group of microcalcifications or new suspicious mass in either breast. Overall Assessment: Benign, BI-RAD 2 Management: Screening Mammogram of both breasts in 1 year. . Patient should continue monthly self-breast exams. A clinical breast exam by your physician is recommended on an annual basis. This exam should not preclude additional follow-up of suspicious palpable abnormalities. Note on Elvira scores and lifetime risk: 1. A Elvira score greater than 3% is considered moderate risk. If this is the case, consider specialist referral to assess eligibility for a risk reducing agent. 2. If overall lifetime risk for the development of breast cancer is 20% or higher, the patient may qualify for future screening with alternating mammogram and breast MRI. Electronically signed and approved by: Brittani Dawson M.D. Radiologist
== END | disposition home or self-care (01) ==
LOC: RADMAMWWP 09:39
PROVIDERS: ATTEND Family Medicine
DX: Z12.31 Encounter for screening mammogram for malignant neoplasm of breast (principal); R92.333 Mammographic heterogeneous density, bilateral breasts; Z78.0 Asymptomatic menopausal state
CPT/HCPCS: 77063; 77067

== ENCOUNTER 2024-09-28 11:29 | Emergency (ER) | payer MEDICARE ==
[2024-09-28 11:41] VITALS: TEMP 98.4
--- NOTE | 2024-09-28 12:19 | ED ---
Extremity Problem HPI - General Chief complaint: Extremity Problem,Nontraumatic Stated complaint: L leg swelling Time Seen by Provider: 09/28/24 11:44 Source: patient, RN notes reviewed Mode of arrival: wheelchair Limitations: physical limitation - History of Present Illness Initial comments: Patient is a 78 year old female with past medical history of left leg vein stripping and hypercholesterolemia presenting for left leg swelling and foot pain x 2 days. She states that 2 days ago, she woke up to her left leg being swollen and unable to bear weight on her left foot due to pain at "the arch". She states that she usually has some swelling, but it usually "goes down by the morning time". She states that she normally wears compression socks, but has been "unable to get them on in the past 2 days because of the swelling". She notes that she "used to take a water pill in the summer but stopped because the swelling was gone" and that she has "not gotten around to taking it again". She states that she had "vein stripping" 20 years ago and again 5 years ago in [place], and follows with a "vascular doctor to look for any clots". She denies any shortness of breath, chest pain, recent surgery or travel, dizziness, recent surgery or history of DVT or PE. - Related Data Home Medications Medication Instructions Recorded Confirmed Atorvastatin [Lipitor] 10 mg PO DAILY 02/01/20 02/05/20 Biotin 10,000 mcg PO DAILY 02/01/20 02/05/20 Brimonidine Tartrate [Alphagan P 1 drops BOTH EYES BID 02/01/20 02/05/20 0.1% Ophth Soln] Cholecalciferol (Vitamin D3) 2,000 unit PO DAILY 02/01/20 02/05/20 [Vitamin D3] Cyanocobalamin (Vitamin B-12) 1,000 mcg PO DAILY 02/01/20 02/05/20 [Vitamin B-12] Dorzolamide-Timol 2.23%/0.68% 1 drop BOTH EYES BID 02/01/20 02/05/20 [Cosopt] Multivitamins, Thera [Multivitamin 1 tab PO DAILY 02/01/20 02/05/20 (formulary)] Netarsudil Mesylat/Latanoprost 1 drop BOTH EYES HS 02/01/20 02/05/20 [Rocklatan 0.02%-0.005% Eye Drp] Omeprazole [PriLOSEC] 40 mg PO DAILY 02/01/20 02/05/20 Potassium Chloride [Klor-Con 10] 10 meq PO BID 02/01/20 02/05/20 Raloxifene [Evista] 60 mg PO DAILY 02/01/20 02/05/20 amLODIPine [Norvasc] 10 mg PO DAILY 02/01/20 02/05/20 hydroCHLOROthiazide [Hydrodiuril] 25 mg PO DAILY 02/01/20 02/05/20 Allergies Allergy/AdvReac Type Severity Reaction Status Date / Time adhesive Allergy Rash/Hives Verified 09/28/24 11:34 bandaid Allergy Rash/Hives Uncoded 09/28/24 11:34 Review of Systems ROS Statement: Those systems with pertinent positive or pertinent negative responses have been documented in the HPI. ROS Other: All systems not noted in ROS Statement are negative. Past Medical History Past Medical History: Coronary Artery Disease (CAD), Hyperlipidemia, Hypertension Additional Past Medical History / Comment(s): glaucoma History of Any Multi-Drug Resistant Organisms: None Reported Past Surgical History: No Surgical Hx Reported Past Psychological History: No Psychological Hx Reported Smoking Status: Never smoker Past Alcohol Use History: Occasional Past Drug Use History: None Reported General Exam Limitations: physical limitation General appearance: alert, in no apparent distress Head exam: Present: atraumatic, normocephalic, normal inspection Respiratory exam: Present: normal lung sounds bilaterally. Absent: respiratory distress, wheezes, rales, rhonchi, stridor Cardiovascular Exam: Present: normal rhythm, tachycardia, normal heart sounds. Absent: systolic murmur, diastolic murmur, rubs, gallop, clicks GI/Abdominal exam: Present: soft, normal bowel sounds. Absent: distended, tenderness, guarding, rebound, rigid Left Hip exam: Present: normal inspection Upper Leg exam: Present: normal inspection Knee exam: Present: normal inspection Lower Leg exam: Present: swelling, erythema (mild in comparison to right) Ankle exam: Present: swelling. Absent: full ROM Foot/Toe exam: Present: tenderness (TTP of arch), swelling. Absent: full ROM Neurovascular tendon exam: Present: decreased fine/light touch (foot) Gait: unable to bear weight Neurological exam: Present: alert, oriented X3, CN II-XII intact Course Vital Signs 09/28/24 09/28/24 09/28/24 11:35 13:53 15:34 Temperature 98.4 F 98.4 F Pulse Rate 132 H 122 H 108 H Respiratory 18 22 20 Rate Blood Pressure 137/81 153/80 O2 Sat by Pulse 96 94 L 97 Oximetry Medical Decision Making - Medical Decision Making Was pt. sent in by a medical professional or institution (, [facility], [facility], urgent care, hospital, or skilled nursing...) When possible be specific @ -No Did you speak to anyone other than the patient for history (EMS, parent, family, police, friend...)? What history was obtained from this source @ -No Did you review nursing and triage notes (agree or disagree)? Why? @ -I reviewed and agree with nursing and triage notes Were old charts reviewed (outside hosp., previous admission, EMS record, old EK G, old radiological studies, urgent care reports/EKG's, skilled nursing records)? Report findings @ -No old charts were reviewed Differential Diagnosis (chest pain, altered mental status, abdominal pain women, abdominal pain men, vaginal bleeding, weakness, fever, dyspnea, syncope, headache, dizziness, GI bleed, back pain, seizure, CVA, palpatations, mental health, musculoskeletal)? @ -DVT, cellulitis, PE, leg edema, vascular insufficiency EKG interpreted by me (3pts min.). @ -As above X-rays interpreted by me (1pt min.). @ -X-ray left foot no acute fracture CT interpreted by me (1pt min.). @ -CT angio chest negative for PE U/S interpreted by me (1pt. min.). @ -[Ultrasound venous Doppler negative for acute DVT What testing was considered but not performed or refused? (CT, X-rays, U/S, labs)? Why? @ -None What meds were considered but not given or refused? Why? @ -None Did you discuss the management of the patient with other professionals (professionals i.e. [facility] Brewster, [facility], lab, RT, psych nurse, social service liaison, convalescent sitter, teacher, mounted police officer, oil field caser)? Give summary @ -No Was smoking cessation discussed for >3mins.? @ -No Was critical care preformed (if so, how long)? @ -No Were there social determinants of health that impacted care today? How? (Homelessness, low income, unemployed, alcoholism, drug addiction, transportation, low edu. Level, literacy, decrease access to med. care, longterm, rehab)? @ -No Was there de-escalation of care discussed even if they declined (Discuss DNR or withdrawal of care, Hospice)? DNR status @ -No What co-morbidities impacted this encounter? (DM, HTN, Smoking, COPD, CAD, Cancer, CVA, ARF, Chemo, Hep., AIDS, mental health diagnosis, sleep apnea, morbid obesity)? @ -None Was patient admitted / discharged? Hospital course, mention meds given and route, prescriptions, significant lab abnormalities, going to OR and other pertinent info. @ -Discharge patient presented for left leg pain, swelling tachycardia. Patient has no evidence of DVT PE. Laboratory studies unremarkable patient does have mild cellulitis, no evidence of fracture. Patient did have tachycardia and PE, DVT ruled out. She is very anxious did have improved after analgesics and anxiolytics. Patient feels comfortable discharge and close follow-up. Undiagnosed new problem with uncertain prognosis? @ -No Drug Therapy requiring intensive monitoring for toxicity (Heparin, Nitro, Insulin, Cardizem)? @ -No Were any procedures done? @ -No Diagnosis/symptom? @ -Foot pain, leg edema, cellulitis Acute, or Chronic, or Acute on Chronic? @ -Acute Uncomplicated (without systemic symptoms) or Complicated (systemic symptoms)? @ -Uncomplicated Side effects of treatment? @ -No Exacerbation, Progression, or Severe Exacerbation? @ -No Poses a threat to life or bodily function? How? (Chest pain, USA, SC, pneumonia, PE, COPD, DKA, ARF, appy, cholecystitis, CVA, Diverticulitis, Homicidal, Suicidal, threat to staff... and all critical care pts) @ -No - Lab Data Result diagrams: 09/28/24 12:15 09/28/24 12:15 Lab Results 09/28/24 09/28/24 09/28/24 Range/Units 12:15 12:15 12:21 WBC 10.9 H (3.8-10.6) k/uL RBC 3.93 (3.80-5.40) m/uL Hgb 13.2 (11.4-16.0) gm/dL Hct 38.6 (34.0-46.0) % MCV 98.2 (80.0-100.0) fL MCH 33.7 (25.0-35.0) pg MCHC 34.3 (31.0-37.0) g/dL RDW 13.6 (11.5-15.5) % Plt Count 225 (150-450) k/uL MPV 7.5 Neutrophils % 88 % Lymphocytes % 7 % Monocytes % 3 % Eosinophils % 1 % Basophils % 0 % Neutrophils # 9.6 H (1.3-7.7) k/uL Lymphocytes # 0.8 L (1.0-4.8) k/uL Monocytes # 0.4 (0-1.0) k/uL Eosinophils # 0.2 (0-0.7) k/uL Basophils # 0.0 (0-0.2) k/uL PT 10.1 (10.0-12.5) sec INR 0.9 (<1.2) APTT 22.6 (22.0-30.0) sec Sodium 138 (137-145) mmol/L Potassium 3.7 (3.5-5.1) mmol/L Chloride 99 (98-107) mmol/L Carbon Dioxide 28 (22-30) mmol/L Anion Gap 11 mmol/L BUN 13 (7-17) mg/dL Creatinine 0.48 L (0.52-1.04) mg/dL Est GFR (CKD-EPI)AfAm >90 (>60 ml/min/1.73 sqM) Est GFR (CKD-EPI)NonAf >90 (>60 ml/min/1.73 sqM) Glucose 113 H (74-99) mg/dL Calcium 9.6 (8.4-10.2) mg/dL Total Bilirubin 0.9 (0.2-1.3) mg/dL AST 34 (14-36) U/L ALT 31 (4-34) U/L Alkaline Phosphatase 95 (38-126) U/L Troponin I (0.000-0.034) ng/mL NT-Pro-B Natriuret Pep <20 pg/mL Total Protein 7.8 (6.3-8.2) g/dL Albumin 4.5 (3.5-5.0) g/dL 09/28/24 Range/Units 12:21 WBC (3.8-10.6) k/uL RBC (3.80-5.40) m/uL Hgb (11.4-16.0) gm/dL Hct (34.0-46.0) % MCV (80.0-100.0) fL MCH (25.0-35.0) pg MCHC (31.0-37.0) g/dL RDW (11.5-15.5) % Plt Count (150-450) k/uL MPV Neutrophils % % Lymphocytes % % Monocytes % % Eosinophils % % Basophils % % Neutrophils # (1.3-7.7) k/uL Lymphocytes # (1.0-4.8) k/uL Monocytes # (0-1.0) k/uL Eosinophils # (0-0.7) k/uL Basophils # (0-0.2) k/uL PT (10.0-12.5) sec INR (<1.2) APTT (22.0-30.0) sec Sodium (137-145) mmol/L Potassium (3.5-5.1) mmol/L Chloride (98-107) mmol/L Carbon Dioxide (22-30) mmol/L Anion Gap mmol/L BUN (7-17) mg/dL Creatinine (0.52-1.04) mg/dL Est GFR (CKD-EPI)AfAm (>60 ml/min/1.73 sqM) Est GFR (CKD-EPI)NonAf (>60 ml/min/1.73 sqM) Glucose (74-99) mg/dL Calcium (8.4-10.2) mg/dL Total Bilirubin (0.2-1.3) mg/dL AST (14-36) U/L ALT (4-34) U/L Alkaline Phosphatase (38-126) U/L Troponin I <0.012 (0.000-0.034) ng/mL NT-Pro-B Natriuret Pep pg/mL Total Protein (6.3-8.2) g/dL Albumin (3.5-5.0) g/dL - EKG Data -: EKG Interpreted by [place] EKG Comments: EKG performed at 12: 38 sinus tachycardia rate of 118 MS 142 QRS 79 QT/QTc 301/371 Disposition Clinical Impression: Foot pain, Cellulitis Disposition: HOME SELF-CARE Condition: Stable Instructions (If sedation given, give patient instructions): Cellulitis (ED) Additional Instructions: Please return to the Emergency Department if symptoms worsen or any other concerns. Is patient prescribed a controlled substance at d/c from ED?: No Referrals: Yenifer Lugo MD [Primary Care Provider] - 1-2 days Time of Disposition: 15:35
[2024-09-28 12:22] LABS: Basophils % (A) 0 %; Eosinophils # (A) 0.2 k/uL (0-0.7); Eosinophils % (A) 1 %; HCT 38.6 % (34.0-46.0); HGB 13.2 gm/dL (11.4-16.0); Lymphocytes # (A) 0.8 k/uL (1.0-4.8); Lymphocytes % (A) 7 %; MCH 33.7 pg (25.0-35.0); MCHC 34.3 g/dL (31.0-37.0); MCV 98.2 fL (80.0-100.0); Mean Platelet Volume 7.5; Monocytes # (A) 0.4 k/uL (0-1.0); Monocytes % (A) 3 %; Neutrophils # (A) 9.6 k/uL (1.3-7.7); Neutrophils % (A) 88 %; Platelet Count 225 k/uL (150-450); RBC 3.93 m/uL (3.80-5.40); RDW 13.6 % (11.5-15.5); WBC 10.9 k/uL (3.8-10.6)
[2024-09-28 13:02] LABS: ALT 31 U/L (4-34); AST 34 U/L (14-36); African American GFR (CKD) >90 (>60 ml/min/1.73 sqM); Albumin 4.5 g/dL (3.5-5.0); Alkaline Phosphatase 95 U/L (38-126); Anion Gap 11 mmol/L; Blood Urea Nitrogen 13 mg/dL (7-17); Calcium 9.6 mg/dL (8.4-10.2); Carbon Dioxide 28 mmol/L (22-30); Chloride 99 mmol/L (98-107); Glucose 113 mg/dL (74-99); Non-African American GFR(CKD) >90 (>60 ml/min/1.73 sqM); Potassium 3.7 mmol/L (3.5-5.1); Sodium 138 mmol/L (137-145); Total Bilirubin 0.9 mg/dL (0.2-1.3); Total Protein 7.8 g/dL (6.3-8.2)
--- NOTE | 2024-09-28 13:03 | US ---
EXAMINATION TYPE: US venous doppler duplex LE LT DATE OF EXAM: 09/28/2024 12:52 PM COMPARISON: NONE CLINICAL INDICATION: Female, 78 years old with history of pain; pain and edema, Pain TECHNIQUE: The lower extremity deep venous system is examined utilizing real time linear array sonog sada with graded compression, color doppler sonography, and spectral doppler. SIDE PERFORMED: Left FINDINGS: VESSELS IMAGED: Common Femoral Vein Deep Femoral Vein Greater Saphenous Vein * Femoral Vein Popliteal Vein Small Saphenous Vein * Proximal Calf Veins (* superficial vessels) Left Leg: Negative for DVT, Color Doppler imaging shows patency of the vessels. Spectral waveforms a re within normal limits. IMPRESSION: 1. Left lower extremity ultrasound negative for deep venous thrombosis. [facility], , 09/28/2024 1:01 PM
[2024-09-28 13:11] LABS: NT-Pro-B-Type Natriuretic Pept <20 pg/mL
[2024-09-28 13:19] LABS: INR 0.9 (<1.2); Partial Thromboplastin Time 22.6 sec (22.0-30.0); Prothrombin Time 10.1 sec (10.0-12.5)
[2024-09-28] MEDS: ONDANSETRON 4 MG/2 ML VIAL IVP STA (13:51)
--- NOTE | 2024-09-28 13:54 | CT ---
EXAMINATION TYPE: CT chest angio for PE CT DLP: 288.4 mGycm, Automated exposure control for dose reduction was used. DATE OF EXAM: 09/28/2024 1:48 PM COMPARISON: None CLINICAL INDICATION:Female, 78 years old with history of sob; swollen left leg TECHNIQUE/CONTRAST: CTA scan of the thorax is performed with IV Contrast, patient injected with 100ml mL of Isovue 370, p ulmonary embolism protocol. MIP images are created and reviewed. FINDINGS: Pulmonary Artery: There is no evidence for a filling defect within the pulmonary vasculature to sugge st acute pulmonary embolism. The pulmonary artery is of normal size. Lungs/Pleura: No evidence of focal consolidation, pleural effusion or pneumothorax. Airway: Large airways are patent. Heart: Heart is within normal limits for size.. Vasculature: No evidence of aortic aneurysm. Retropharyngeal course of the bilateral common carotid a rteries. Mild atherosclerotic calcification of aorta and its branches. Mediastinum: No evidence of adenopathy. Musculoskeletal: No acute osseous abnormalities. Remote healed left-sided 3 through 6 rib fractures. Mild multilevel degenerative disc disease of the thoracic spine. Soft Tissues: Unremarkable. Lower neck: No significant findings. Upper Abdomen: Moderate size hiatal hernia. Few hepatic cysts with largest measures 3.7 cm. IMPRESSION: 1. No evidence of pulmonary embolism or acute thoracic process. 2. Moderate-sized hiatal hernia. [facility], , 09/28/2024 1:52 PM
[2024-09-28] MEDS: LORazepam 2 MG/ML INJ IV STA (14:16)
[2024-09-28] MEDS: KETOROLAC 15 MG/ML 1 ML VIAL IVP STA (14:17)
--- NOTE | 2024-09-28 14:40 | XR ---
EXAMINATION TYPE: XR foot complete LT DATE OF EXAM: 09/28/2024 2:33 PM COMPARISON: None. CLINICAL INDICATION: Female, 78 years old with history of pain, pain TECHNIQUE: 3 view(s) obtained. FINDINGS: No acute fracture or dislocation evident. Structures are osteopenic. Joint spaces are preserved. Soft tissue is prominent. Follow up exams can be performed 7-10 days from acute trauma for continued pain. IMPRESSION: 1. There may be some diffuse soft tissue swelling present. 2. No acute osseous abnormality radiographically apparent. 3. Osteopenia. This could be correlated with bone density. [facility], , 09/28/2024 2:38 PM
[2024-09-28 15:34] VITALS: PULSE 108; RESP 20
[2024-09-28] MEDS: ACET/COD 300 MG/30 MG STARTER PACK 6 TAB BTL PO STA (15:52)
[2024-09-28 16:13] VITALS: BP 142/84
== END 2024-09-28 16:11 | disposition home or self-care (01) ==
LOC: EC 11:29
DX: L03.116 Cellulitis of left lower limb (principal); R60.0 Localized edema; Z91.048 Other nonmedicinal substance allergy status
CPT/HCPCS: 36415; 93005; 83880; 80053; 84484; 85025; 85610; 85730; 73630; 93971; 71275; 99284; 96374; 96375; J2060; J1885; Q9967

== ENCOUNTER → 2025-03-20 | Outpatient (CLI) | payer MEDICARE ==
--- NOTE | 2025-03-20 10:29 | MM ---
Reason for Exam: Screening (asymptomatic). Last screening mammogram was performed 12 month(s) ago. Patient History: Menarche at age 13. First Full-Term at age 24. Postmenopausal. 1989, Benign Excisional Biopsy on the right side. 1984, Benign Excisional Biopsy on the left side. 1985, Benign Excisional Biopsy on the left side. 1984, Benign Excisional Biopsy on the right side. Risk Values: Elvira 5 year model risk: 2.5%. NCI Lifetime model risk: 3.9%. Prior Study Comparison: 02/22/2022 Bilateral MG 3D screening mammo w/cad, [facility]. 02/28/2023 Bilateral MG 3D screening mammo w/cad, [facility]. 03/14/2024 Bilateral MG 3D screening mammo w/cad, [facility]. Tissue Density: There are scattered areas of fibroglandular density. Findings: Analyzed By CAD. There is no suspicious group of microcalcifications or new suspicious mass in either breast. Stable postbiopsy changes right breast. Overall Assessment: Benign, BI-RAD 2 Management: Screening Mammogram of both breasts in 1 year. . Patient should continue monthly self-breast exams. A clinical breast exam by your physician is recommended on an annual basis. This exam should not preclude additional follow-up of suspicious palpable abnormalities. Note on Elvira scores and lifetime risk: 1. A Elvira score greater than 3% is considered moderate risk. If this is the case, consider specialist referral to assess eligibility for a risk reducing agent. 2. If overall lifetime risk for the development of breast cancer is 20% or higher, the patient may qualify for future screening with alternating mammogram and breast MRI. [facility], , 03/20/2025 10:25 AM. Electronically signed and approved by: Howie Herron M.D. Radiologis
--- NOTE | 2025-03-20 12:16 | BD ---
EXAMINATION TYPE: Axial Bone Density DATE OF EXAM: 03/20/2025 CLINICAL HISTORY: 79 years old Female. ICD-10 CODE: M810 KNOWN OSTEO , Additional History: Height: 58.5 Weight: 143.1 FRAX RISK QUESTIONS: Alcohol (3 or more units per day): no Family History (Parent hip fracture): no Glucocorticoids (More than 3mos): no (Ex: prednisone, prednisolone, methylprednisolone, dexamethasone, and hydrocortisone). History of Fracture in Adulthood: foot, humerus, ankle Secondary Osteoporosis: 1. Type 1 Diabetes: no 2. Hyperthyroidism: no 3. Menopause before 45: yes 4. Malnutrition: no 5. Chronic liver disease: no Rheumatoid Arthritis: no Current Tobacco Use: no RISK FACTORS HISTORY OF: Hip Fracture (Right/Left): no Spine Fracture: no History of Wrist Fracture: no Surgery to Spine/Hip(right/left)/Wrist (right/left): no MEDICATIONS: Thyroid Medications: no Osteoporosis Medications: Raloxifene daily How Long: past 20 years EXAM MEASUREMENTS: Bone mineral densitometry was performed using the [employer] System. Bone mineral density as measured about the Lumbar spine is: ----- L1-L4(G/cm2): 0.942 T Score Values are as follows: ----- L1: -1.6 ----- L2: -2.2 ----- L3: -2.1 ----- L4: -2.1 ----- L1-L4: -2.0 Z Score Values are as follows: ----- L1: 0.2 ----- L2: -0.4 ----- L3: -0.3 ----- L4: -0.2 ----- L1-L4: -0.1 Bone mineral density has: decrease -1.3 % since study of: 03/16/2023 Bone mineral density about the R hip (g/cm2): 0.942 Bone mineral density about the L hip (g/cm2): 0.972 T Score values are as follows: -----R Neck: -0.4 -----L Neck: -1.1 -----R Total: -0.5 -----L Total: -0.3 Z Score values are as follows: -----R Neck: 1.8 -----L Neck: 1.0 -----R Total: 1.5 -----L Total: 1.7 Bone mineral density has: increased 4.9 % since study of: 03/16/2023 FRAX%s: The graph provided illustrates a 17.3% chance for a major osteoporotic fx and a 3.2% chance f or the hips probability for fx in 10 years time. IMPRESSION: Osteopenia (T Score between -2.5 and -1). There is slightly increased risk of fracture and the patient may be considered for treatment. Re-Screen 2-5 years. NOTE: T-SCORE=SD OF THE YOUNG ADULT MEAN. [facility], , 03/20/2025 12:13 PM
== END | disposition home or self-care (01) ==
LOC: RADMAMWWP 09:57
PROVIDERS: ATTEND Family Medicine
DX: Z12.31 Encounter for screening mammogram for malignant neoplasm of breast (principal); M81.0 Age-related osteoporosis without current pathological fracture; R92.323 Mammographic fibroglandular density, bilateral breasts; M85.89 Other specified disorders of bone density and structure, multiple sites; Z78.0 Asymptomatic menopausal state
CPT/HCPCS: 77063; 77067; 77080